=== PATIENT | female | born 1950 | race Caucasian/White ===

== ENCOUNTER 2022-05-17 06:17 | Inpatient (IN) ==
[2022-05-11 12:16] LABS: Basophils % 0.5 % (0.0-0.8); Eosinophils # 0.5 10*3/uL (0.0-0.87); Eosinophils % 5.5 % (0.00-10.9); Hematocrit 36.9 VOL% (35.7-47.0); Hemoglobin 11.8 GM/DL (12.0-16.0); Immature Granulocytes % 0.2 %; Immature Granulocytes Absolute 0.02 #; Lymphocytes # 2.4 10*3/uL (1.4-4.0); Lymphocytes % 29.2 % (21.3-54.2); Mean Corpuscular Volume 90.4 FL (87-102); Mean Platelet Volume 10.9 FL (9.6-12.0); Monocytes # 0.5 10*3/uL (0.11-0.8); Monocytes % 5.5 % (1.7-12.7); Neutrophils % 59.1 % (38.7-73.9); Platelet Count 322 T/CUMM (130-400); Red Blood Count 4.08 MC/CUMM (3.8-5.5); Red Cell Distribution Width 13.6 % (9.3-17.3); White Blood Count 8.1 T/CUMM (4-12)
[2022-05-11 12:42] LABS: Calcium 9.2 MG/DL (8.5-10.1); Osmolality,Calculated 281.3 MOS/KG (273-304)
[~2022-05-17 06:17] MED LIST: ERTAPENEM 1,000 MG in SODIUM CHLORIDE 0.9% 100 ML IV ONE
[2022-05-17] MEDS ORDERED: LIDOCAINE 2% 5 ML VIAL ONE (06:32)
[2022-05-17] MEDS ORDERED: fentaNYL 100 MCG/2 ML VIAL ONE (06:32)
[2022-05-17] MEDS ORDERED: propofoL 200 MG/20 ML VIAL IV ONE (06:32)
[2022-05-17] MEDS ORDERED: ROCURONIUM 50 MG/5 ML VIAL IV ONE ×2 (06:32→08:33)
[2022-05-17] MEDS ORDERED: MIDAZOLAM 2 MG/2 ML VIAL ONE (06:32)
[2022-05-17] MEDS ORDERED: ACETAMINOPHEN 500 MG TABLET PO ONE (06:34)
[2022-05-17] MEDS ORDERED: FAMOTIDINE 20 MG TABLET PO ONE (06:34)
[2022-05-17] MEDS ORDERED: DIAZEPAM 5 MG TABLET PO ONE (06:34)
[2022-05-17] MEDS ORDERED: TISSUE ADHESIVE 1 EACH APPLICATOR TOP ONE (06:34)
[2022-05-17] MEDS ORDERED: GABAPENTIN 400 MG CAPSULE PO ONE (06:34)
[2022-05-17] MEDS: LACTATED RINGERS 1,000 ML IV SCH ×2 (06:45→09:16)
[2022-05-17] MEDS ORDERED: LACTATED RINGERS 1,000 ML IV SCH (07:00)
[2022-05-17] MEDS ORDERED: BUPIVACAINE 0.5% 50 ML VIAL ONE (08:07)
[2022-05-17] MEDS ORDERED: PHENYLEPHRINE 10 MG/1 ML VIAL IV ONE (08:29)
[2022-05-17] MEDS ORDERED: PHENYLEPHRINE 1 MG/10 ML SYRINGE IV ONE (08:29)
[2022-05-17] MEDS ORDERED: ONDANSETRON 4 MG/2 ML VIAL ONE (08:33)
[2022-05-17] MEDS ORDERED: DEXAMETHASONE 4 MG/1 ML VIAL ONE (08:33)
[2022-05-17] MEDS ORDERED: SEVOFLURANE 1 UNIT/15 MINUTE INH ONE (08:33)
[2022-05-17] MEDS ORDERED: NEOSTIGMINE 10 MG/10 ML VIAL ONE (09:02)
[2022-05-17] MEDS ORDERED: GLYCOPYRROLATE 0.4 MG/2 ML VIAL ONE (09:02)
[2022-05-17 09:34] LABS: Amorphous Crystals,Urine Occasional /HPF (Few); Bacteria,Urine Moderate /HPF (Few); Bilirubin,Urine Negative (Negative); Blood, Urine Small mg/dL (Negative); Glucose,Urine (UA) Negative (Negative); Hyaline Casts,Urine 9 /LPF (0-3); Ketones,Urine Negative (Negative); Mucus,Urine Occasional /LPF (Occasional); Nitrite,Urine Positive (Negative); Protein,Urine Negative (Negative); RBC,Urine 5 /HPF (0-4); Squamous Epithelial Cell,Urine Occasional /HPF (0-10); Urine Appearance CLOUDY (Clear); Urine Color Yellow (Yellow); Urine Specific Gravity 1.008 (1.001-1.035); Urine Urobilinogen < 2.0 eU/dL (<2.0)
[2022-05-17] MEDS ORDERED: LACTATED RINGERS 1,000 ML IV ONE (13:39)
[2022-05-17] MEDS: DEXTROSE 5% LACTATED RINGERS 1,000 ML IV SCH (15:13)
[2022-05-17] MEDS: HYDROmorphone 1 MG/1 ML SYRINGE IV PRN (17:20)
[2022-05-17] MEDS: PIPERACILLIN/TAZOBACTAM 3,375 MG in SODIUM CHLORIDE 0.9% 100 ML IV SCH (17:20)
[2022-05-18] MEDS: PIPERACILLIN/TAZOBACTAM 3,375 MG in SODIUM CHLORIDE 0.9% 100 ML IV SCH ×3 (05:00→17:45)
[2022-05-18] MEDS: ENOXAPARIN 40 MG/0.4 ML SYRINGE SUBCUT SCH (05:05)
[2022-05-18 05:35] LABS: Basophils % 0.3 % (0.0-0.8); Eosinophils % 0.2 % (0.00-10.9); Hematocrit 35.3 VOL% (35.7-47.0); Hemoglobin 11.6 GM/DL (12.0-16.0); Immature Granulocytes % 0.5 %; Immature Granulocytes Absolute 0.08 #; Lymphocytes # 0.3 10*3/uL (1.4-4.0); Lymphocytes % 2.1 % (21.3-54.2); Mean Corpuscular HGB Conc 32.9 GM/DL (32-36); Mean Corpuscular Volume 89.8 FL (87-102); Mean Platelet Volume 11.2 FL (9.6-12.0); Monocytes # 0.5 10*3/uL (0.11-0.8); Monocytes % 3.5 % (1.7-12.7); Neutrophils % 93.4 % (38.7-73.9); Platelet Count 263 T/CUMM (130-400); Red Blood Count 3.93 MC/CUMM (3.8-5.5); Red Cell Distribution Width 13.9 % (9.3-17.3); White Blood Count 15.1 T/CUMM (4-12)
[2022-05-18 05:49] LABS: Calcium 8.9 MG/DL (8.5-10.1); Osmolality,Calculated 282.3 MOS/KG (273-304)
[2022-05-18 06:10] LABS: Hypochromia Slight; Lymphocytes 4 % (20-55); Microcytosis Slight; Platelet Estimate Adequate; Total Cells Counted 100
[2022-05-18] MEDS: HYDROmorphone 1 MG/1 ML SYRINGE IV PRN (11:39)
[2022-05-18] MEDS: ONDANSETRON 4 MG/2 ML VIAL IV PRN (14:03)
[2022-05-18] MEDS: GABAPENTIN 400 MG CAPSULE PO SCH ×2 (15:32→20:22)
[2022-05-18 17:33] LABS: Bilirubin,Urine Negative (Negative); Blood, Urine Negative (Negative); Glucose,Urine (UA) Negative (Negative); Ketones,Urine Negative (Negative); Nitrite,Urine Negative (Negative); Protein,Urine Negative (Negative); RBC,Urine 2 /HPF (0-4); Urine Appearance CLEAR (Clear); Urine Color Yellow (Yellow); Urine Specific Gravity 1.017 (1.001-1.035); Urine Urobilinogen < 2.0 eU/dL (<2.0)
[2022-05-18] MEDS: ACETAMINOPHEN 325 MG TABLET PO PRN (17:34)
[2022-05-18] MEDS: METOPROLOL TARTRATE 25 MG TABLET PO SCH (20:21)
[2022-05-18] MEDS: MELATONIN 3 MG TABLET PO SCH (20:21)
[2022-05-18] MEDS: clonazePAM 0.5 MG TABLET PO SCH (20:22)
[2022-05-18] MEDS: traZODone 50 MG TABLET PO SCH (20:22)
[2022-05-19] MEDS: PIPERACILLIN/TAZOBACTAM 3,375 MG in SODIUM CHLORIDE 0.9% 100 ML IV SCH ×3 (01:21→17:26)
[2022-05-19] MEDS: DEXTROSE 5% LACTATED RINGERS 1,000 ML IV SCH ×5 (01:22→18:04)
[2022-05-19] MEDS: ACETAMINOPHEN 325 MG TABLET PO PRN (04:05)
[2022-05-19] MEDS: ENOXAPARIN 40 MG/0.4 ML SYRINGE SUBCUT SCH (04:05)
[2022-05-19 07:32] LABS: Basophils % 0.4 % (0.0-0.8); Eosinophils % 0.3 % (0.00-10.9); Hematocrit 31.3 VOL% (35.7-47.0); Hemoglobin 10.2 GM/DL (12.0-16.0); Immature Granulocytes % 0.8 %; Immature Granulocytes Absolute 0.06 #; Lymphocytes # 0.3 10*3/uL (1.4-4.0); Lymphocytes % 3.4 % (21.3-54.2); Mean Corpuscular HGB Conc 32.6 GM/DL (32-36); Mean Corpuscular Volume 88.7 FL (87-102); Monocytes # 0.2 10*3/uL (0.11-0.8); Monocytes % 2.7 % (1.7-12.7); Neutrophils % 92.4 % (38.7-73.9); Platelet Count 168 T/CUMM (130-400); Red Blood Count 3.53 MC/CUMM (3.8-5.5); Red Cell Distribution Width 14.4 % (9.3-17.3); White Blood Count 7.9 T/CUMM (4-12)
[2022-05-19 07:48] LABS: Calcium 8.3 MG/DL (8.5-10.1); Osmolality,Calculated 287.1 MOS/KG (273-304); Potassium 2.8 MMOL/L (3.5-5.1)
[2022-05-19] MEDS: clonazePAM 0.5 MG TABLET PO SCH ×2 (08:36→21:19)
[2022-05-19 09:18] LABS: Anisocytosis Slight; Band Neutrophils 8 % (0-10); Burr Cells 2+; Eosinophils 1 % (0-10); Lymphocytes 3 % (20-55); Platelet Estimate Normal; Total Cells Counted 100
[2022-05-19] MEDS ORDERED: MAGNESIUM SULF RIDER 2 GM/50 ML PREMIX IV ONE (09:57)
[2022-05-19] MEDS: METOPROLOL TARTRATE 25 MG TABLET PO SCH ×2 (10:26→21:19)
[2022-05-19] MEDS: FERROUS SULFATE 325 MG TABLET PO SCH (10:27)
[2022-05-19] MEDS: GABAPENTIN 400 MG CAPSULE PO SCH ×3 (10:27→21:18)
[2022-05-19] MEDS: LEVOTHYROXINE 75 MCG TABLET PO SCH (10:29)
[2022-05-19] MEDS: POTASSIUM CHLORIDE RIDER 10 MEQ/100 ML PREMIX IV SCH ×3 (14:43→16:24)
[2022-05-19] MEDS: POTASSIUM CHLORIDE 20 MEQ TABLET PO PRN ×2 (17:26→21:58)
[2022-05-19] MEDS: MELATONIN 3 MG TABLET PO SCH (21:18)
[2022-05-19] MEDS: traZODone 50 MG TABLET PO SCH (21:18)
[2022-05-20] MEDS: POTASSIUM CHLORIDE 20 MEQ TABLET PO PRN ×2 (00:05→02:30)
[2022-05-20] MEDS: PIPERACILLIN/TAZOBACTAM 3,375 MG in SODIUM CHLORIDE 0.9% 100 ML IV SCH ×3 (00:39→16:50)
[2022-05-20 06:50] LABS: Calcium 8.2 MG/DL (8.5-10.1); Osmolality,Calculated 283.3 MOS/KG (273-304)
[2022-05-20] MEDS: GABAPENTIN 400 MG CAPSULE PO SCH ×3 (09:51→20:59)
[2022-05-20] MEDS: FERROUS SULFATE 325 MG TABLET PO SCH (09:51)
[2022-05-20] MEDS: clonazePAM 0.5 MG TABLET PO SCH ×2 (09:51→21:00)
[2022-05-20] MEDS: LEVOTHYROXINE 75 MCG TABLET PO SCH (09:51)
[2022-05-20] MEDS: ENOXAPARIN 40 MG/0.4 ML SYRINGE SUBCUT SCH (09:51)
[2022-05-20] MEDS: METOPROLOL TARTRATE 25 MG TABLET PO SCH ×2 (09:52→20:59)
[2022-05-20] MEDS: DEXTROSE 5% LACTATED RINGERS 1,000 ML IV SCH ×3 (11:41→17:21)
[2022-05-20] MEDS ORDERED: TAMSULOSIN 0.4 MG CAPSULE PO ONE (17:22)
[2022-05-20] MEDS: ALBUTEROL/IPRATROPIUM 3 ML NEB RESP TX SCH (19:14)
[2022-05-20] MEDS: traZODone 50 MG TABLET PO SCH (20:59)
[2022-05-20] MEDS: MELATONIN 3 MG TABLET PO SCH (20:59)
[2022-05-20] MEDS: METRONIDAZOLE 0.75% VAG CREAM 70 GM TUBE VAG SCH (23:15)
[2022-05-21] MEDS: ALBUTEROL/IPRATROPIUM 3 ML NEB RESP TX SCH ×5 (00:12→23:40)
[2022-05-21] MEDS: PIPERACILLIN/TAZOBACTAM 3,375 MG in SODIUM CHLORIDE 0.9% 100 ML IV SCH ×4 (00:45→20:58)
[2022-05-21] MEDS: DEXTROSE 5% LACTATED RINGERS 1,000 ML IV SCH ×3 (00:48→11:41)
[2022-05-21 05:28] LABS: Basophils % 0.4 % (0.0-0.8); Eosinophils # 0.3 10*3/uL (0.0-0.87); Eosinophils % 5.4 % (0.00-10.9); Hematocrit 29.5 VOL% (35.7-47.0); Hemoglobin 9.6 GM/DL (12.0-16.0); Immature Granulocytes % 0.4 %; Immature Granulocytes Absolute 0.02 #; Lymphocytes # 0.8 10*3/uL (1.4-4.0); Lymphocytes % 15.3 % (21.3-54.2); Mean Corpuscular HGB Conc 32.5 GM/DL (32-36); Mean Corpuscular Volume 88.3 FL (87-102); Mean Platelet Volume 11.8 FL (9.6-12.0); Monocytes # 0.3 10*3/uL (0.11-0.8); Monocytes % 6.3 % (1.7-12.7); Neutrophils % 72.2 % (38.7-73.9); Platelet Count 169 T/CUMM (130-400); Red Blood Count 3.34 MC/CUMM (3.8-5.5); Red Cell Distribution Width 14.7 % (9.3-17.3); White Blood Count 5.2 T/CUMM (4-12)
[2022-05-21 05:53] LABS: Folate 6.85 NG/ML (5.38-24.0)
[2022-05-21 05:54] LABS: % Iron Saturation 16.1 % (18-50); Thyroid Stimulating Hormone 1.26 uIU/ml (0.358-3.74)
[2022-05-21 06:37] LABS: Albumin 1.6 G/DL (3.4-5.0); Bilirubin,Total 1.4 MG/DL (0.20-1.00); Calcium 7.9 MG/DL (8.5-10.1); Osmolality,Calculated 281.3 MOS/KG (273-304); Potassium 3.3 MMOL/L (3.5-5.1); Total Protein 4.9 G/DL (6.4-8.2)
[2022-05-21] MEDS ORDERED: POTASSIUM CHLORIDE 20 MEQ TABLET PO ONE (08:03)
[2022-05-21] MEDS ORDERED: FERROUS SULFATE 325 MG TABLET PO SCH (09:00)
[2022-05-21] MEDS: TAMSULOSIN 0.4 MG CAPSULE PO SCH (09:31)
[2022-05-21] MEDS: METOPROLOL TARTRATE 25 MG TABLET PO SCH ×2 (09:32→21:02)
[2022-05-21] MEDS: ENOXAPARIN 40 MG/0.4 ML SYRINGE SUBCUT SCH (09:32)
[2022-05-21] MEDS: GABAPENTIN 400 MG CAPSULE PO SCH ×3 (09:33→20:58)
[2022-05-21] MEDS: LEVOTHYROXINE 75 MCG TABLET PO SCH (09:34)
[2022-05-21] MEDS: clonazePAM 0.5 MG TABLET PO SCH ×2 (09:35→20:58)
[2022-05-21] MEDS: POTASSIUM CHLORIDE 20 MEQ TABLET PO PRN (11:25)
[2022-05-21] MEDS: FERRIC GLUCONATE COMPLEX 125 MG in SODIUM CHLORIDE 0.9% 100 ML IV SCH (11:30)
[2022-05-21] MEDS: MELATONIN 3 MG TABLET PO SCH (20:58)
[2022-05-21] MEDS: ONDANSETRON 4 MG/2 ML VIAL IV PRN (20:59)
[2022-05-21] MEDS: traZODone 50 MG TABLET PO SCH (20:59)
[2022-05-21] MEDS: METRONIDAZOLE 0.75% VAG CREAM 70 GM TUBE VAG SCH (23:33)
[2022-05-22] MEDS: PIPERACILLIN/TAZOBACTAM 3,375 MG in SODIUM CHLORIDE 0.9% 100 ML IV SCH ×2 (04:23→14:50)
[2022-05-22] MEDS: DEXTROSE 5% LACTATED RINGERS 1,000 ML IV SCH ×2 (04:23→12:40)
[2022-05-22 05:24] LABS: Basophils % 0.5 % (0.0-0.8); Eosinophils # 0.6 10*3/uL (0.0-0.87); Eosinophils % 9.5 % (0.00-10.9); Hematocrit 29.1 VOL% (35.7-47.0); Hemoglobin 9.4 GM/DL (12.0-16.0); Immature Granulocytes % 0.3 %; Immature Granulocytes Absolute 0.02 #; Lymphocytes % 17.4 % (21.3-54.2); Mean Corpuscular HGB Conc 32.3 GM/DL (32-36); Mean Corpuscular Volume 89.3 FL (87-102); Mean Platelet Volume 11.8 FL (9.6-12.0); Monocytes # 0.5 10*3/uL (0.11-0.8); Monocytes % 7.9 % (1.7-12.7); Neutrophils % 64.4 % (38.7-73.9); Platelet Count 159 T/CUMM (130-400); Red Blood Count 3.26 MC/CUMM (3.8-5.5); Red Cell Distribution Width 14.9 % (9.3-17.3); White Blood Count 5.8 T/CUMM (4-12)
[2022-05-22 06:04] LABS: Calcium 8.3 MG/DL (8.5-10.1); Osmolality,Calculated 285.1 MOS/KG (273-304); Potassium 3.9 MMOL/L (3.5-5.1)
[2022-05-22] MEDS: ALBUTEROL/IPRATROPIUM 3 ML NEB RESP TX SCH ×3 (07:20→19:05)
[2022-05-22] MEDS: ENOXAPARIN 40 MG/0.4 ML SYRINGE SUBCUT SCH (09:36)
[2022-05-22] MEDS: METOPROLOL TARTRATE 25 MG TABLET PO SCH ×2 (09:36→20:51)
[2022-05-22] MEDS: clonazePAM 0.5 MG TABLET PO SCH ×2 (09:36→20:51)
[2022-05-22] MEDS: LEVOTHYROXINE 75 MCG TABLET PO SCH (09:36)
[2022-05-22] MEDS: GABAPENTIN 400 MG CAPSULE PO SCH ×3 (09:36→20:50)
[2022-05-22] MEDS: TAMSULOSIN 0.4 MG CAPSULE PO SCH (09:36)
[2022-05-22] MEDS: FERRIC GLUCONATE COMPLEX 125 MG in SODIUM CHLORIDE 0.9% 100 ML IV SCH (09:42)
[2022-05-22] MEDS: PANTOPRAZOLE 40 MG TABLET PO SCH ×2 (12:46→20:51)
[2022-05-22] MEDS: cefTRIAXone 1,000 MG in SODIUM CHLORIDE 0.9% 100 ML IV SCH (16:02)
[2022-05-22] MEDS: ONDANSETRON 4 MG/2 ML VIAL IV PRN (17:14)
[2022-05-22] MEDS: ALUMINUM/MAGNES/SIMETH MAX STR 30 ML UDCUP PO PRN (20:50)
[2022-05-22] MEDS: MELATONIN 3 MG TABLET PO SCH (20:50)
[2022-05-22] MEDS: METRONIDAZOLE 0.75% VAG CREAM 70 GM TUBE VAG SCH (20:51)
[2022-05-22] MEDS: traZODone 50 MG TABLET PO SCH (20:51)
[2022-05-23] MEDS: ALBUTEROL/IPRATROPIUM 3 ML NEB RESP TX SCH ×4 (00:04→19:28)
[2022-05-23 05:11] LABS: Basophils % 0.3 % (0.0-0.8); Eosinophils # 0.5 10*3/uL (0.0-0.87); Eosinophils % 6.6 % (0.00-10.9); Hematocrit 26.6 VOL% (35.7-47.0); Hemoglobin 8.7 GM/DL (12.0-16.0); Immature Granulocytes % 0.4 %; Immature Granulocytes Absolute 0.03 #; Lymphocytes # 1.9 10*3/uL (1.4-4.0); Mean Corpuscular HGB Conc 32.7 GM/DL (32-36); Mean Corpuscular Volume 87.5 FL (87-102); Mean Platelet Volume 12.1 FL (9.6-12.0); Monocytes # 0.4 10*3/uL (0.11-0.8); Monocytes % 5.8 % (1.7-12.7); Neutrophils % 58.9 % (38.7-73.9); Platelet Count 167 T/CUMM (130-400); Red Blood Count 3.04 MC/CUMM (3.8-5.5); Red Cell Distribution Width 15.1 % (9.3-17.3); White Blood Count 6.8 T/CUMM (4-12)
[2022-05-23 05:33] LABS: Albumin 1.5 G/DL (3.4-5.0); Bilirubin,Total 2.1 MG/DL (0.20-1.00); Calcium 8.7 MG/DL (8.5-10.1); Osmolality,Calculated 281.1 MOS/KG (273-304); Potassium 3.9 MMOL/L (3.5-5.1); Total Protein 4.8 G/DL (6.4-8.2)
[2022-05-23] MEDS: clonazePAM 0.5 MG TABLET PO SCH ×2 (09:46→21:24)
[2022-05-23] MEDS: PANTOPRAZOLE 40 MG TABLET PO SCH ×2 (09:47→21:24)
[2022-05-23] MEDS: LEVOTHYROXINE 75 MCG TABLET PO SCH (09:47)
[2022-05-23] MEDS: METOPROLOL TARTRATE 25 MG TABLET PO SCH ×2 (09:47→21:25)
[2022-05-23] MEDS: TAMSULOSIN 0.4 MG CAPSULE PO SCH (09:47)
[2022-05-23] MEDS: GABAPENTIN 400 MG CAPSULE PO SCH ×3 (09:48→21:28)
[2022-05-23] MEDS: FERRIC GLUCONATE COMPLEX 125 MG in SODIUM CHLORIDE 0.9% 100 ML IV SCH (09:49)
[2022-05-23] MEDS: ENOXAPARIN 40 MG/0.4 ML SYRINGE SUBCUT SCH (09:54)
[2022-05-23] MEDS: cefTRIAXone 1,000 MG in SODIUM CHLORIDE 0.9% 100 ML IV SCH (15:36)
[2022-05-23] MEDS: ONDANSETRON 4 MG/2 ML VIAL IV PRN (17:24)
[2022-05-23] MEDS: traZODone 50 MG TABLET PO SCH (21:24)
[2022-05-23] MEDS: MELATONIN 3 MG TABLET PO SCH (21:24)
[2022-05-24] MEDS: METRONIDAZOLE 0.75% VAG CREAM 70 GM TUBE VAG SCH ×2 (00:20→20:58)
[2022-05-24] MEDS: ALBUTEROL/IPRATROPIUM 3 ML NEB RESP TX SCH ×4 (00:57→20:31)
[2022-05-24 04:55] LABS: Basophils % 0.4 % (0.0-0.8); Eosinophils # 0.2 10*3/uL (0.0-0.87); Eosinophils % 3.3 % (0.00-10.9); Hematocrit 23.3 VOL% (35.7-47.0); Hemoglobin 7.6 GM/DL (12.0-16.0); Immature Granulocytes % 0.4 %; Immature Granulocytes Absolute 0.02 #; Lymphocytes # 2.3 10*3/uL (1.4-4.0); Lymphocytes % 41.7 % (21.3-54.2); Mean Corpuscular HGB Conc 32.6 GM/DL (32-36); Mean Corpuscular Volume 88.3 FL (87-102); Monocytes # 0.4 10*3/uL (0.11-0.8); Monocytes % 7.3 % (1.7-12.7); Neutrophils % 46.9 % (38.7-73.9); Platelet Count 193 T/CUMM (130-400); Red Blood Count 2.64 MC/CUMM (3.8-5.5); Red Cell Distribution Width 15.6 % (9.3-17.3); White Blood Count 5.5 T/CUMM (4-12)
[2022-05-24 05:19] LABS: Albumin 1.6 G/DL (3.4-5.0); Calcium 8.7 MG/DL (8.5-10.1); Osmolality,Calculated 284.8 MOS/KG (273-304); Total Protein 4.9 G/DL (6.4-8.2)
[2022-05-24] MEDS: ENOXAPARIN 40 MG/0.4 ML SYRINGE SUBCUT SCH (10:52)
[2022-05-24] MEDS: GABAPENTIN 400 MG CAPSULE PO SCH ×3 (10:52→20:57)
[2022-05-24] MEDS: PANTOPRAZOLE 40 MG TABLET PO SCH ×2 (10:52→20:58)
[2022-05-24] MEDS: TAMSULOSIN 0.4 MG CAPSULE PO SCH (10:53)
[2022-05-24] MEDS: LEVOTHYROXINE 75 MCG TABLET PO SCH (10:53)
[2022-05-24] MEDS: clonazePAM 0.5 MG TABLET PO SCH ×2 (10:53→20:57)
[2022-05-24] MEDS: FERRIC GLUCONATE COMPLEX 125 MG in SODIUM CHLORIDE 0.9% 100 ML IV SCH (10:54)
[2022-05-24] MEDS: METOPROLOL TARTRATE 25 MG TABLET PO SCH ×2 (10:54→20:58)
[2022-05-24 12:21] LABS: Mycoplasma pneumoniae Ab Inter SEE COMMENTS; Mycoplasma pneumoniae Ab, IgG Positive (Negative); Mycoplasma pneumoniae Ab, IgM Negative (Negative)
[2022-05-24] MEDS: cefTRIAXone 1,000 MG in SODIUM CHLORIDE 0.9% 100 ML IV SCH (16:03)
[2022-05-24] MEDS: ALUMINUM/MAGNES/SIMETH MAX STR 30 ML UDCUP PO PRN (17:56)
[2022-05-24] MEDS: MELATONIN 3 MG TABLET PO SCH (20:58)
[2022-05-24] MEDS: traZODone 50 MG TABLET PO SCH (20:58)
[2022-05-25] MEDS: ALBUTEROL/IPRATROPIUM 3 ML NEB RESP TX SCH ×4 (01:34→20:02)
[2022-05-25] MEDS: GABAPENTIN 400 MG CAPSULE PO SCH ×3 (09:12→22:31)
[2022-05-25] MEDS: clonazePAM 0.5 MG TABLET PO SCH ×2 (09:12→22:31)
[2022-05-25] MEDS: TAMSULOSIN 0.4 MG CAPSULE PO SCH (09:12)
[2022-05-25] MEDS: PANTOPRAZOLE 40 MG TABLET PO SCH ×2 (09:12→22:31)
[2022-05-25] MEDS: LEVOTHYROXINE 75 MCG TABLET PO SCH (09:12)
[2022-05-25] MEDS: FERRIC GLUCONATE COMPLEX 125 MG in SODIUM CHLORIDE 0.9% 100 ML IV SCH (09:13)
[2022-05-25] MEDS: ENOXAPARIN 40 MG/0.4 ML SYRINGE SUBCUT SCH (09:13)
[2022-05-25] MEDS: METOPROLOL TARTRATE 25 MG TABLET PO SCH ×2 (09:13→22:32)
[2022-05-25] MEDS: cefTRIAXone 1,000 MG in SODIUM CHLORIDE 0.9% 100 ML IV SCH (16:19)
[2022-05-25] MEDS ORDERED: ONDANSETRON ODT 4 MG TABLET PO PRN (19:11)
[2022-05-25] MEDS: traZODone 50 MG TABLET PO SCH (22:31)
[2022-05-25] MEDS: MELATONIN 3 MG TABLET PO SCH (22:31)
[2022-05-26] MEDS: ALBUTEROL/IPRATROPIUM 3 ML NEB RESP TX SCH ×4 (01:45→19:23)
[2022-05-26] MEDS: FERRIC GLUCONATE COMPLEX 125 MG in SODIUM CHLORIDE 0.9% 100 ML IV SCH (09:32)
[2022-05-26] MEDS: METOPROLOL TARTRATE 25 MG TABLET PO SCH ×2 (09:40→21:40)
[2022-05-26] MEDS: PANTOPRAZOLE 40 MG TABLET PO SCH ×2 (09:41→21:40)
[2022-05-26] MEDS: TAMSULOSIN 0.4 MG CAPSULE PO SCH (09:41)
[2022-05-26] MEDS: LEVOTHYROXINE 75 MCG TABLET PO SCH (09:41)
[2022-05-26] MEDS: GABAPENTIN 400 MG CAPSULE PO SCH ×3 (09:41→21:40)
[2022-05-26] MEDS: ENOXAPARIN 40 MG/0.4 ML SYRINGE SUBCUT SCH (09:42)
[2022-05-26] MEDS: clonazePAM 0.5 MG TABLET PO SCH ×2 (10:51→21:40)
[2022-05-26] MEDS: cefTRIAXone 1,000 MG in SODIUM CHLORIDE 0.9% 100 ML IV SCH (14:47)
[2022-05-26] MEDS: MELATONIN 3 MG TABLET PO SCH (21:41)
[2022-05-26] MEDS: traZODone 50 MG TABLET PO SCH (21:41)
[2022-05-27] MEDS: ALBUTEROL/IPRATROPIUM 3 ML NEB RESP TX SCH ×4 (00:38→19:05)
[2022-05-27] MEDS: FERRIC GLUCONATE COMPLEX 125 MG in SODIUM CHLORIDE 0.9% 100 ML IV SCH (09:11)
[2022-05-27] MEDS: PANTOPRAZOLE 40 MG TABLET PO SCH ×2 (09:14→20:14)
[2022-05-27] MEDS: ENOXAPARIN 40 MG/0.4 ML SYRINGE SUBCUT SCH (09:14)
[2022-05-27] MEDS: GABAPENTIN 400 MG CAPSULE PO SCH ×3 (09:14→20:14)
[2022-05-27] MEDS: TAMSULOSIN 0.4 MG CAPSULE PO SCH (09:14)
[2022-05-27] MEDS: METOPROLOL TARTRATE 25 MG TABLET PO SCH ×2 (09:14→20:14)
[2022-05-27] MEDS: clonazePAM 0.5 MG TABLET PO SCH ×2 (09:15→20:14)
[2022-05-27] MEDS: LEVOTHYROXINE 75 MCG TABLET PO SCH (09:15)
[2022-05-27] MEDS: POTASSIUM CHLORIDE 20 MEQ TABLET PO PRN (10:46)
[2022-05-27] MEDS ORDERED: PHENYLEPH/MINERAL OIL/PETROLAT 57 GM TUBE TOP PRN (12:43)
[2022-05-27] MEDS: cefTRIAXone 1,000 MG in SODIUM CHLORIDE 0.9% 100 ML IV SCH (14:20)
[2022-05-27 15:38] LABS: Mucus,Urine Occasional /LPF (Occasional); RBC,Urine 1 /HPF (0-4); Squamous Epithelial Cell,Urine Occasional /HPF (0-10); Urine Appearance Clear (Clear); Urine Color Yellow (Yellow); Urine pH 7.5 (4.5-8.0)
[2022-05-27 15:39] LABS: Bilirubin,Urine Negative (Negative); Blood, Urine Negative (Negative); Glucose,Urine (UA) Negative (Negative); Ketones,Urine Negative (Negative); Nitrite,Urine Negative (Negative); Protein,Urine Negative (Negative); Urine Specific Gravity 1.015 (1.001-1.035); Urine Urobilinogen 0.2 eU/dL (<2.0)
[2022-05-27] MEDS: traZODone 50 MG TABLET PO SCH (20:14)
[2022-05-27] MEDS: MELATONIN 3 MG TABLET PO SCH (20:14)
[2022-05-28] MEDS: ALBUTEROL/IPRATROPIUM 3 ML NEB RESP TX SCH ×3 (00:10→13:30)
[2022-05-28] MEDS: clonazePAM 0.5 MG TABLET PO SCH (08:24)
[2022-05-28] MEDS: ENOXAPARIN 40 MG/0.4 ML SYRINGE SUBCUT SCH (08:24)
[2022-05-28] MEDS: FERRIC GLUCONATE COMPLEX 125 MG in SODIUM CHLORIDE 0.9% 100 ML IV SCH (08:24)
[2022-05-28] MEDS: GABAPENTIN 400 MG CAPSULE PO SCH ×2 (08:25→15:08)
[2022-05-28] MEDS: LEVOTHYROXINE 75 MCG TABLET PO SCH (08:25)
[2022-05-28] MEDS: TAMSULOSIN 0.4 MG CAPSULE PO SCH (08:26)
[2022-05-28] MEDS: METOPROLOL TARTRATE 25 MG TABLET PO SCH (08:26)
[2022-05-28] MEDS: PANTOPRAZOLE 40 MG TABLET PO SCH (08:26)
[2022-05-28 12:45] VITALS: BP 138/70
[2022-05-28] MEDS: cefTRIAXone 1,000 MG in SODIUM CHLORIDE 0.9% 100 ML IV SCH (14:48)
== END 2022-05-28 16:44 | disposition home health service (06) | DRG 329 ==
LOC: N.OR 06:17 → N.SDSINP 06:17 → N.5E 10:30
PROVIDERS: ADMIT Student in an Organized Health Care Education/Training Program; ATTEND Student in an Organized Health Care Education/Training Program